=== PATIENT | male | born 1995 | race Two or more races ===

== ENCOUNTER 2021-12-18 03:04 | Emergency (ER) | payer SELFPAY ==
[~2021-12-18] VITALS: Ht 185.4 cm; Wt 79.4 kg
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
--- NOTE | 2021-12-18 03:46 | NUR ---
XRAY AT BEDSIDE
[2021-12-18] MEDS ORDERED: KETO10TA2 PO (04:15)
[2021-12-18 04:27] VITALS: BP 142/76
--- NOTE | 2021-12-18 04:27 | NUR ---
Patient discharged to home in stable condition. Written and verbal after care instructions given. Patient verbalizes understanding of instruction.
== END 2021-12-18 04:27 | disposition home or self-care (01) ==
LOC: ER 03:14
DX: M54.50 Low back pain, unspecified (principal); V49.49XA Driver injured in collision with other motor vehicles in traffic accident, initial encounter; Y93.89 Activity, other specified; Y92.413 State road as the place of occurrence of the external cause; Y99.8 Other external cause status
CPT/HCPCS: 72110-TC